=== PATIENT | female | born 1945 | race Caucasian/White ===

== ENCOUNTER 2016-08-22 08:28 | Day surgery (SDC) | payer MEDICARE, BC ==
[2016-08-22] MEDS ORDERED: LIDOCAINE 2% MDV (20MG/ML) 20ML VIAL IV ONE (15:44)
[2016-08-22] MEDS ORDERED: MIDAZOLAM HCL 2MG/2ML VIAL IV ONE (15:44)
[2016-08-22] MEDS ORDERED: PROPOFOL 10 MG/ML VIAL IV ONE (15:44)
--- NOTE | 2016-08-24 06:50 | Operative Note ---
DATE OF SURGERY: OPERATION: COLONOSCOPY with serial biopsy. PREOPERATIVE DIAGNOSIS: History of colitis, rule out dysplasia. POSTOPERATIVE DIAGNOSIS: History of colitis, rule out dysplasia. PROCEDURE: After informed consent was obtained from the patient, she was placed in the left lateral decubitus position in the endoscopy suite, sedated and monitored by the department of anesthesia. Digital rectal exam was unremarkable. A well-lubricated [id number] colonoscope was inserted into the rectum and advanced to the cecum. Preparation quality was excellent. The ileocecal valve, cecum, appendiceal orifice, ascending colon, transverse colon, and descending colon were unremarkable. The sigmoid colon and rectum demonstrated some very mild patchy erythema. Two 10 cm 4-quadrant biopsies were obtained and placed in 2 separate jars, one labeled right colon and one labeled left colon. The rectum was unremarkable in forward and in J-turn views. The endoscope was straightened, the rectal ampulla deflated, and the endoscope was removed. RECOMMENDATIONS: I would suggest the patient resume her medications and diet. If no dysplasia found, a repeat colonoscopy in 2 years would be suggested. At this point it does not appear that she requires any treatment. As always, thank you for allowing me to participate in the healthcare of your patients. Shashank Finney DO CC: TANNER Martinez
== END 2016-08-22 09:45 | disposition home or self-care (01) ==
LOC: HOP 08:28
PROVIDERS: ATTEND Internal Medicine Gastroenterology
DX: K52.89 Other specified noninfective gastroenteritis and colitis (principal); E78.00 Pure hypercholesterolemia, unspecified

== ENCOUNTER 2018-11-12 12:55 | Day surgery (SDC) | payer MEDICARE, BC ==
[2018-11-12] MEDS ORDERED: PROPOFOL 10 MG/ML VIAL IV ONE (12:56)
[2018-11-12] MEDS ORDERED: LIDOCAINE 2% MDV (20MG/ML) 20ML VIAL IV ONE (12:56)
--- NOTE | 2018-11-13 12:30 | Operative Note ---
DATE OF SURGERY: 11/12/2018 OPERATION: COLONOSCOPY with cold snare polypectomy. PREOPERATIVE DIAGNOSIS: Questionable history of colitis. POSTOPERATIVE DIAGNOSIS: Transverse colon polyp. PROCEDURE: After informed consent was obtained from the patient, she was placed in the left lateral decubitus position in the endoscopy suite, sedated and monitored by the department of anesthesia. Digital rectal exam was unremarkable. A well-lubricated [id number] colonoscope was inserted into the rectum and advanced to the cecum. The cecum, cecal bulb, ileocecal valve, and ascending colon were unremarkable. In the distal transverse colon there was a 4 mm sessile polyp removed with a cold snare and a cold forceps. The remainder of the transverse colon, descending colon, sigmoid colon, and rectum were unrevealing. J-turn views of the anorectum were unremarkable. The endoscope was straightened, the rectal ampulla deflated, and the endoscope was removed. RECOMMENDATIONS: The patient should resume her medications and diet. She should have repeat exam in 5 years provided her health will allow. As always, thank you for allowing me to participate in the healthcare of your patients. CC: TANNER Martinez
== END 2018-11-12 14:25 | disposition home or self-care (01) ==
LOC: HOP 12:55
PROVIDERS: ATTEND Internal Medicine Gastroenterology
DX: Z09 Encounter for follow-up examination after completed treatment for conditions other than malignant neoplasm (principal); D12.3 Benign neoplasm of transverse colon; E78.00 Pure hypercholesterolemia, unspecified; K21.9 Gastro-esophageal reflux disease without esophagitis; M54.9 Dorsalgia, unspecified